=== PATIENT | female | born 1960 | race Caucasian/White ===

== ENCOUNTER 2016-08-19 09:14 | Day surgery (SDC) | payer MEDICAID ==
[2016-08-19] MEDS ORDERED: diphenhydrAMINE 25 MG CAP PO ONE (09:19)
[2016-08-19] MEDS ORDERED: NS 1,000 ML IV ONE (09:19)
[2016-08-19] MEDS ORDERED: FAMOTIDINE 20 MG TAB PO ONE (09:19)
[2016-08-19] MEDS ORDERED: ASPIRIN EC 325 MG TAB PO ONE (09:19)
[2016-08-19] MEDS ORDERED: DIAZEPAM 5 MG TAB PO ONE (09:19)
--- NOTE | 2016-08-19 09:43 | CPEKG ---
Heart Rate: 80 RR Interval: 750 P-R Interval: 148 QRSD Interval: 134 QT Interval: 440 QTC Interval: 508 P [place]: 68 QRS [place]: -66 T Wave [place]: 65 EKG Severity - ABNORMAL ECG - EKG Impression: SINUS RHYTHM EKG Impression: MULTIPLE VENTRICULAR PREMATURE COMPLEXES EKG Impression: PROBABLE LEFT ATRIAL ABNORMALITY EKG Impression: RBBB AND LAFB EKG Impression: LEFT VENTRICULAR HYPERTROPHY Electronically Signed By: Marium Gallagher 19-Aug-2016 09:59:40
[2016-08-19 10:00] LABS: % IMMATURE GRANULYOCYTES 0.4 % (0.0-1.1); ABSOLUTE IMMATURE GRANULOCYTES 0.03 10^3/uL (0.00-0.10); ADD DIFF? NO; ADD MORPH? NO; ADD SCAN? NO; ATYPICAL LYMPHOCYTE FLAG 20 (0-99); FRAGMENT RBC FLAG 0 (0-99); HEMATOCRIT 40.5 % (38.0-47.0); HEMOGLOBIN 13.4 g/dL (12.6-16.3); LEFT SHIFT FLG 0 (0-99); LIPEMIA HEMOLYSIS FLAG 80 (0-99); MEAN CELL HEMOGLOBIN 31.9 pg (27.9-34.1); MEAN CELL HEMOGLOBIN CONCENTR. 33.1 g/dL (32.4-36.7); MEAN CELL VOLUME 96.4 fL (81.5-99.8); MEAN PLATELET VOLUME 9.9 fL (8.7-11.7); PLATELET CLUMPS FLAG 10 (0-99); PLATELET COUNT 300 10^3/uL (150-400); RED CELL DISTRIBUTION WIDTH 13.2 % (11.5-15.2)
[2016-08-19 10:12] LABS: INR 0.98 (0.83-1.16); PROTIME(PATIENT) 12.9 SEC (12.0-15.0)
[2016-08-19] MEDS ORDERED: IOPAMIDOL (ISOVUE-370) 150 ML BTL IV ONE (10:14)
[2016-08-19] MEDS ORDERED: LIDOCAINE 1% 30 ML SDV ONE (10:14)
[2016-08-19] MEDS ORDERED: MIDAZOLAM 2 MG/2 ML VIAL ONE ×2 (10:14→12:17)
[2016-08-19] MEDS ORDERED: fentaNYL 100 MCG/2 ML INJ ONE ×2 (10:14→12:17)
[2016-08-19 10:23] LABS: ANION GAP 14 mEq/L (8-16); CALCIUM 9.7 mg/dL (8.5-10.4); CARBON DIOXIDE 25 mEq/l (22-31); CHLORIDE 103 mEq/L (97-110); CHOLESTEROL 171 mg/dL (140-220); CREATININE 0.8 mg/dL (0.6-1.0); GLOMERULAR FILTRATION RATE > 60; GLUCOSE 124 mg/dL (70-100); HIGH DENSITY LIPOPROTEIN 95 mg/dL (40-85); LDL/HDL RATIO 0.52 RATIO (1.00-3.22); LOW DENSITY LIPOPROTEIN 49 mg/dL (80-100); NON-HIGH DENSITY LIPOPROTEIN 76 mg/dL (90-129); POTASSIUM 3.6 mEq/L (3.5-5.2); SODIUM 142 mEq/L (134-144); TRIGLYCERIDE 136 mg/dL (35-135); VERY LOW DENSITY LIPOPROTEINS 27 mg/dL (8-25)
[2016-08-19 10:26] LABS: MAGNESIUM 0.9 mg/dL (1.6-2.3)
[2016-08-19] MEDS ORDERED: MAGNESIUM SULF 1 GM/DEXTROSE 100 ML BAG IV ONE (11:35)
[2016-08-19] MEDS ORDERED: VERAPAMIL 5 MG/2 ML VIAL ONE (11:36)
[2016-08-19] MEDS ORDERED: HEPARIN 10,000 UNIT/10 ML MDV ONE (11:36)
[2016-08-19] MEDS ORDERED: MAGNESIUM SULF 1 GM/DEXTROSE 100 ML IV ONE (12:00)
[2016-08-19] MEDS ORDERED: hydrALAZINE 20 MG/ML VIAL ONE (12:15)
[2016-08-19] MEDS ORDERED: ATROPINE SULFATE 1 MG/10 ML SYR IVP PRN (12:54)
[2016-08-19] MEDS ORDERED: ONDANSETRON 4 MG/2 ML VIAL IVP PRN (12:54)
[2016-08-19] MEDS ORDERED: NITROGLYCERIN 0.4 MG BTL SL PRN (12:54)
--- NOTE | 2016-08-19 12:59 | PDDXCAT ---
Diagnostic Cath Note - . Date: 08/19/16 Events Intern: Heike Indication: other (Preoperative assessment for hip replacement.) High-risk criteria on non-invasive testing: stress-induced mod-size perf defect w LV dilatation or inc lung uptake - Procedure Access: right wrist Procedure: left heart catheterization, coronary angiography, left ventriculogram - Materials Left Heart Cath size: 5F Left Heart Cath materials: JL3.5, JR4.0, pigtail Right Heart Cath size: 5F Right Heart Cath materials: PWP catheter - Findings-Left Heart Catheterization LM: Large caliber vessel. Appropriate bifurcation into the LAD and circumflex systems. Free of disease. LAD: Large caliber vessel. Transapical. Single large diagonal branch. Normal in appearance. LCX: Normal in appearance. Large caliber vessel. 2 identified obtuse marginal branches RCA: Large caliber vessel. Dominant. Normal in appearance. EDP: 26 mmHg. LVEF: Greater than 70%. Wall motion: Ventriculogram complicated by ventricular tachycardia. The ejection fraction appears normal. No significant wall motion abnormalities. - Findings-Right Heart Catheterization RA: 14 mm Hg. RV: 70 / 10/19 mmHg. PA: 70/33/48 mmHg. PAOP: 18 mmHg. No significant V waves. AO: 170 / 95/129 mmHg. CO: 9.99 liters/minute. CI: 4.70 liters/minute per meter2. Complications: None. Estimated blood loss: <50ml Closure method: TR Band Assessment: 1. Angiographically normal epicardial coronary arteries. 2. Hyperdynamic left ventricular systolic function without significant wall motion abnormalities. 3. Moderate to severe pulmonary hypertension. Plan: She will be evaluated as an outpatient for etiologies to her pulmonary hypertension. At this point, she has no prohibitive cardiovascular risk to safely undergoing total hip arthroplasty. Intervention: None.
[2016-08-19] MEDS ORDERED: ACETAMINOPHEN 325 MG TAB PO ONE (16:30)
== END 2016-08-19 17:00 | disposition home or self-care (01) ==
LOC: FCATH 09:14
PROVIDERS: ATTEND Internal Medicine Cardiovascular Disease
PROC: 4A023N8 Measurement of Cardiac Sampling and Pressure, Bilateral, Percutaneous Approach (ICD-10-PCS; principal; 2016-08-19)
PROC: B2151ZZ Fluoroscopy of Left Heart using Low Osmolar Contrast (ICD-10-PCS; principal; 2016-08-19)
PROC: B2111ZZ Fluoroscopy of Multiple Coronary Arteries using Low Osmolar Contrast (ICD-10-PCS; principal; 2016-08-19)
DX: Z01.818 Encounter for other preprocedural examination (principal); I27.2 Other secondary pulmonary hypertension; I47.2 Ventricular tachycardia; R06.02 Shortness of breath; R94.39 Abnormal result of other cardiovascular function study; M16.12 Unilateral primary osteoarthritis, left hip; I10 Essential (primary) hypertension; J44.9 Chronic obstructive pulmonary disease, unspecified; E78.5 Hyperlipidemia, unspecified; E03.9 Hypothyroidism, unspecified; Z87.891 Personal history of nicotine dependence; Z82.49 Family history of ischemic heart disease and other diseases of the circulatory system
CPT/HCPCS: 93005; 93460; C1769; J0360; J1644; J2250; J3010; J3475; Q9967